=== PATIENT | female | born 1945 | race Caucasian/White ===

== ENCOUNTER 2020-02-03 04:38 | Emergency (ER) | payer MEDICARE, OTHER, SELFPAY ==
[2020-02-03] VITALS (7 sets, daily range): BP systolic 101–161; BP diastolic 66–94; PULSE 75–86; RESP 16–23; TEMP 36.8; O2SAT 95–98; BMI 20.7
--- NOTE | 2020-02-03 04:40 | XRR_ITS ---
PROCEDURE INFORMATION: Exam: XR Chest, 1 View Exam date and time: 02/03/2020 5:24 AM Age: 74 years old Clinical indication: Type not specified; Prior surgery; Surgery date: 6+ months; Surgery type: Stents placed 1.5 week ago and previously; Patient HX: C/O chest pain and epigastric pain with some reflux; Additional info: Cp TECHNIQUE: Imaging protocol: XR of the chest Views: 1 view. COMPARISON: No relevant prior studies available. FINDINGS: Lungs: Subtle airspace disease/opacity left costophrenic angle adjacent to the left heart border. Consider two-view chest. Lungs are otherwise well aerated. Pleural space: Unremarkable. No pleural effusion. No pneumothorax. Heart/Mediastinum: Unremarkable. No cardiomegaly. Bones/joints: Unremarkable. XR/XR chest 1V portable [id number] IMPRESSION: Subtle airspace disease/opacity left costophrenic angle adjacent to the left heart border. Consider two-view chest. Lungs are otherwise well aerated.
--- NOTE | 2020-02-03 04:40 | ECG_ITS ---
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 Measurements Intervals [place] Rate: 83 P: 43 NE: 165 QRS: -8 QRSD: 88 T: -82 QT: 391 QTc: 462 Interpretive Statements SINUS RHYTHM LOW QRS VOLTAGE IN PRECORDIAL LEADS MODERATE T-WAVE ABNORMALITY, CONSIDER LATERAL ISCHEMIA MODERATE T-WAVE ABNORMALITY, CONSIDER INFERIOR ISCHEMIA No previous ECG available for comparison Electronically Signed On 02-03-2020 20:50:16 CDT by Kenzie Brice M.D. [id number]
--- NOTE | 2020-02-03 05:01 | ED_ITS ---
Documented by User: Mike Mccurdy MD 02/03/20 18:05 HPI - Chest Pain General: Chief Complaint: Chest Pain Stated Complaint: cp/sob Time Seen by Provider: 02/03/20 04:39 Source: patient Mode of arrival: ambulatory Limitations: no limitations History of Present Illness: HPI narrative: 74-year-old female who has a history of heart attack earlier in January and had 1 stent placed in [place]. Patient having chest pain again week and a half ago at [place] and had 2 more stents placed. Patient is here and was plans on a trip with her son. She states that this morning she started having chest pain roughly 3 to 4 hours ago. States pain was epigastric in nature also feels like she has had some reflux. States the pain is currently an 8 out of 10 and she is having shortness of breath with difficulty inhaling. She denies any worsening or improving factors. She has had no cough or fever. complaint: chest pain Onset (ago): hour(s) Timing of current episode: constant Prior episodes: Yes Onset: during rest Pain location: substernal Pain radiation: none Severity: moderate Quality: tightness Relieving factors: nothing Exacerbating factors: nothing Associated symptoms: Deny abdominal pain, dyspnea, fever(s), nausea or vomiting Review of Systems Const: Denies: fever(s), chills, body aches or change in appetite Eyes: Denies: blurry vision or eye discomfort ENMT: Denies: throat pain or dental pain Card: Reports: chest pain Resp: Denies: dyspnea GI: Denies: abdominal pain, nausea, vomiting or diarrhea : Denies: dysuria Musc: Denies: neck pain or back pain Skin/Breast: Denies: rash Neuro: Denies: headache(s) Psych: Denies: depression Etienne/Lymph: Denies: easy bruising All/Imm: Denies: urticaria Physical Exam Const: COMMON NORMALS: no acute distress, patient oriented x3 and healthy appearing HENMT: COMMON NORMALS: normocephalic and atraumatic HEAD & SCALP: normocephalic and atraumatic Eye: COMMON NORMALS: Equal, round and reactive pupils present and EOMs intact bilaterally PUPIL: Yes Equal, round and reactive pupils present Neck/C-Spine: COMMON NORMALS: full ROM and supple Chest: COMMONS NORMALS: normal inspection of the chest and normal palpation of entire chest wall Resp: COMMON NORMALS: normal respiratory effort, No retractions, No use of accessory muscles and clear to auscultation bilaterally AUSCULTATION: clear to auscultation bilaterally Cardio: COMMON NORMALS: regular rate, regular rhythm and No murmurs present (Cardio) RATE: regular rate RHYTHM: regular rhythm GI: COMMON NORMALS: Normal to inspection, nondistended, normoactive bowel sounds present, Soft to palpation, non-tender and no masses PALPATION: Yes Soft to palpation Extremity: COMMON NORMALS: normal to inspection and full ROM Neuro: COMMON NORMALS: patient oriented x3, moves all extremities and no focal motor deficits Psych: COMMON NORMALS: mental status grossly normal, Normal thought process present and cooperative THOUGHT PROCESS: Normal thought process present Skin: COMMON NORMALS: no rashes or lesions noted and no wounds GENERAL SKIN EXAM: no rashes or lesions noted Course Vital Signs: Vital signs: Vital Signs Temperature 98.2 F 02/03/20 04:40 Pulse Rate 80 02/03/20 10:32 Respiratory Rate 23 H 02/03/20 10:32 Blood Pressure 112/67 02/03/20 10:32 Pulse Oximetry 96 02/03/20 10:32 MDM - Chest Pain Lab Data: Labs: Lab Results 02/03/20 02/03/20 02/03/20 Range/Units 05:00 05:00 05:00 WBC 8.9 (4.0-10.0) 10^3/ uL RBC 4.11 (4.1-5.3) 10^6/u L Hgb 11.4 L (11.5-15.3) g/dL Hct 36.3 L (37.0-47.0) % MCV 88.3 (81-99) fL MCH 27.7 L (28.0-34.0) pg MCHC 31.4 (30.0-36.0) g/dL RDW 12.9 (12.1-15.1) % Plt Count 249 (130-400) 10^3/c mm MPV 9.9 (7.4-10.4) fL Neut % (Auto) 73.0 % Lymph % (Auto) 14.5 % [place] % (Auto) 8.3 % Eos % (Auto) 3.0 % Baso % (Auto) 0.6 % Neut # (Auto) 6.5 (1.8-7.7) 10^3/u L Lymph # (Auto) 1.3 (0.8-4.8) 10^3/u L [place] # (Auto) 0.7 (0.2-0.9) 10^3/u L Eos # (Auto) 0.3 (0.0-0.8) 10^3/u L Baso # (Auto) 0.1 (0.0-0.1) 10^3/u L Nucleated RBC % (a uto) 0 % Nucleated RBCs # 0.0 /100WBC PT 12.50 (10.5-13.3) SECO NDS INR 0.91 (0.8-1.2) D-Dimer 0.81 H (0-0.59) ug/mIFE U Sodium 142 (136-145) mmol/L Potassium 3.7 (3.5-5.1) mmol/L Chloride 107 (98-107) mmol/L Carbon Dioxide 22 (22-29) mmol/L Anion Gap 16.7 (5-19) BUN 14 (8-23) mg/dL Creatinine 0.7 (0.5-0.9) mg/dL Glucose 172 H (65-115) mg/dL Calculated Osmolal ity 294 (285-295) mOsm/k g Calcium 9.9 (8.5-10.5) mg/dL Total Bilirubin 0.6 (0.15-1.2) mg/dL AST 13 (0-32) U/L ALT 13 (0-33) U/L Alkaline Phosphata se 71 (35-105) IU/L Troponin T Baselin e (0-10) ng/L Troponin T 120 Min [place] (0-10) ng/L Delta Troponin T (0-10) ABS# NT-Pro-B Natriuret Pep 2156 H (0-125) pg/mL Total Protein 6.4 L (6.6-8.7) g/dL Albumin 4.5 (3.5-5.2) g/dL Globulin 1.9 (1.3-4.6) g/dL 02/03/20 02/03/20 Range/Units 05:00 07:11 WBC (4.0-10.0) 10^3/ uL RBC (4.1-5.3) 10^6/u L Hgb (11.5-15.3) g/dL Hct (37.0-47.0) % MCV (81-99) fL MCH (28.0-34.0) pg MCHC (30.0-36.0) g/dL RDW (12.1-15.1) % Plt Count (130-400) 10^3/c mm MPV (7.4-10.4) fL Neut % (Auto) % Lymph % (Auto) % [place] % (Auto) % Eos % (Auto) % Baso % (Auto) % Neut # (Auto) (1.8-7.7) 10^3/u L Lymph # (Auto) (0.8-4.8) 10^3/u L [place] # (Auto) (0.2-0.9) 10^3/u L Eos # (Auto) (0.0-0.8) 10^3/u L Baso # (Auto) (0.0-0.1) 10^3/u L Nucleated RBC % (a uto) % Nucleated RBCs # /100WBC PT (10.5-13.3) SECO NDS INR (0.8-1.2) D-Dimer (0-0.59) ug/mIFE U Sodium (136-145) mmol/L Potassium (3.5-5.1) mmol/L Chloride (98-107) mmol/L Carbon Dioxide (22-29) mmol/L Anion Gap (5-19) BUN (8-23) mg/dL Creatinine (0.5-0.9) mg/dL Glucose (65-115) mg/dL Calculated Osmolal ity (285-295) mOsm/k g Calcium (8.5-10.5) mg/dL Total Bilirubin (0.15-1.2) mg/dL AST (0-32) U/L ALT (0-33) U/L Alkaline Phosphata se (35-105) IU/L Troponin T Baselin e 40 H (0-10) ng/L Troponin T 120 Min [place] 36.01 H (0-10) ng/L Delta Troponin T -3.99 L (0-10) ABS# NT-Pro-B Natriuret Pep (0-125) pg/mL Total Protein (6.6-8.7) g/dL Albumin (3.5-5.2) g/dL Globulin (1.3-4.6) g/dL Imaging Data^: CXR: Attestation: I personally reviewed and interpreted this imaging study as follows: My impression: no acute abnormality EKG Data^: EKG 1: Attestation: I personally reviewed and interpreted this EKG as follows: EKG interpretation date: 02/03/20 EKG interpretation time: 04:51 Interpretation: Normal sinus rhythm no ST elevation. T wave inversion in 2 3 and aVF along with V4 through V6 QRS 88 QTC 431 Discharge Plan Discharge Patient Disposition: Xfer Other Clinical Impression: Unstable angina Condition: Fair Discharge Date/Time: 02/03/20 11:55 Coding Level of Care Code ED School Lunch Manager for Chg Fwd Exam Comprehensive Documented by User: Dev Fraire DO 02/03/20 09:29 HPI - Chest Pain General: Chief Complaint: Chest Pain Stated Complaint: cp/sob Time Seen by Provider: 02/03/20 04:39 Course Vital Signs: Vital signs: Vital Signs Temperature 98.2 F 02/03/20 04:40 Pulse Rate 80 02/03/20 10:32 Respiratory Rate 23 H 02/03/20 10:32 Blood Pressure 112/67 02/03/20 10:32 Pulse Oximetry 96 02/03/20 10:32 MDM - Chest Pain Lab Data: Labs: Lab Results 02/03/20 02/03/20 02/03/20 Range/Units 05:00 05:00 05:00 WBC 8.9 (4.0-10.0) 10^3/ uL RBC 4.11 (4.1-5.3) 10^6/u L Hgb 11.4 L (11.5-15.3) g/dL Hct 36.3 L (37.0-47.0) % MCV 88.3 (81-99) fL MCH 27.7 L (28.0-34.0) pg MCHC 31.4 (30.0-36.0) g/dL RDW 12.9 (12.1-15.1) % Plt Count 249 (130-400) 10^3/c mm MPV 9.9 (7.4-10.4) fL Neut % (Auto) 73.0 % Lymph % (Auto) 14.5 % [place] % (Auto) 8.3 % Eos % (Auto) 3.0 % Baso % (Auto) 0.6 % Neut # (Auto) 6.5 (1.8-7.7) 10^3/u L Lymph # (Auto) 1.3 (0.8-4.8) 10^3/u L [place] # (Auto) 0.7 (0.2-0.9) 10^3/u L Eos # (Auto) 0.3 (0.0-0.8) 10^3/u L Baso # (Auto) 0.1 (0.0-0.1) 10^3/u L Nucleated RBC % (a uto) 0 % Nucleated RBCs # 0.0 /100WBC PT 12.50 (10.5-13.3) SECO NDS INR 0.91 (0.8-1.2) D-Dimer 0.81 H (0-0.59) ug/mIFE U Sodium 142 (136-145) mmol/L Potassium 3.7 (3.5-5.1) mmol/L Chloride 107 (98-107) mmol/L Carbon Dioxide 22 (22-29) mmol/L Anion Gap 16.7 (5-19) BUN 14 (8-23) mg/dL Creatinine 0.7 (0.5-0.9) mg/dL Glucose 172 H (65-115) mg/dL Calculated Osmolal ity 294 (285-295) mOsm/k g Calcium 9.9 (8.5-10.5) mg/dL Total Bilirubin 0.6 (0.15-1.2) mg/dL AST 13 (0-32) U/L ALT 13 (0-33) U/L Alkaline Phosphata se 71 (35-105) IU/L Troponin T Baselin e (0-10) ng/L Troponin T 120 Min [place] (0-10) ng/L Delta Troponin T (0-10) ABS# NT-Pro-B Natriuret Pep 2156 H (0-125) pg/mL Total Protein 6.4 L (6.6-8.7) g/dL Albumin 4.5 (3.5-5.2) g/dL Globulin 1.9 (1.3-4.6) g/dL 02/03/20 02/03/20 Range/Units 05:00 07:11 WBC (4.0-10.0) 10^3/ uL RBC (4.1-5.3) 10^6/u L Hgb (11.5-15.3) g/dL Hct (37.0-47.0) % MCV (81-99) fL MCH (28.0-34.0) pg MCHC (30.0-36.0) g/dL RDW (12.1-15.1) % Plt Count (130-400) 10^3/c mm MPV (7.4-10.4) fL Neut % (Auto) % Lymph % (Auto) % [place] % (Auto) % Eos % (Auto) % Baso % (Auto) % Neut # (Auto) (1.8-7.7) 10^3/u L Lymph # (Auto) (0.8-4.8) 10^3/u L [place] # (Auto) (0.2-0.9) 10^3/u L Eos # (Auto) (0.0-0.8) 10^3/u L Baso # (Auto) (0.0-0.1) 10^3/u L Nucleated RBC % (a uto) % Nucleated RBCs # /100WBC PT (10.5-13.3) SECO NDS INR (0.8-1.2) D-Dimer (0-0.59) ug/mIFE U Sodium (136-145) mmol/L Potassium (3.5-5.1) mmol/L Chloride (98-107) mmol/L Carbon Dioxide (22-29) mmol/L Anion Gap (5-19) BUN (8-23) mg/dL Creatinine (0.5-0.9) mg/dL Glucose (65-115) mg/dL Calculated Osmolal ity (285-295) mOsm/k g Calcium (8.5-10.5) mg/dL Total Bilirubin (0.15-1.2) mg/dL AST (0-32) U/L ALT (0-33) U/L Alkaline Phosphata se (35-105) IU/L Troponin T Baselin e 40 H (0-10) ng/L Troponin T 120 Min [place] 36.01 H (0-10) ng/L Delta Troponin T -3.99 L (0-10) ABS# NT-Pro-B Natriuret Pep (0-125) pg/mL Total Protein (6.6-8.7) g/dL Albumin (3.5-5.2) g/dL Globulin (1.3-4.6) g/dL Discharge Plan Discharge Patient Disposition: Xfer Other Clinical Impression: Unstable angina Condition: Fair Discharge Date/Time: 02/03/20 11:55 Coding Level of Care Code ED School Lunch Manager for Chg Fwd Exam Comprehensive
[2020-02-03 05:16] LABS: Basophils # 0.1 10^3/uL (0.0-0.1); Basophils % 0.6 %; Eosinophils # 0.3 10^3/uL (0.0-0.8); Hematocrit 36.3 % (37.0-47.0); Hemoglobin 11.4 g/dL (11.5-15.3); Lymphocytes # 1.3 10^3/uL (0.8-4.8); Lymphocytes % 14.5 %; Mean Corpuscular HGB Conc 31.4 g/dL (30.0-36.0); Mean Corpuscular Hemoglobin 27.7 pg (28.0-34.0); Mean Corpuscular Volume 88.3 fL (81-99); Mean Platelet Volume 9.9 fL (7.4-10.4); Monocytes # 0.7 10^3/uL (0.2-0.9); Monocytes % 8.3 %; Neutrophils # 6.5 10^3/uL (1.8-7.7); Nucleated Red Blood Cells % 0 %; Platelet Count 249 10^3/cmm (130-400); Red Blood Count 4.11 10^6/uL (4.1-5.3); Red Cell Distribution Width 12.9 % (12.1-15.1); White Blood Count 8.9 10^3/uL (4.0-10.0)
[2020-02-03] MEDS: aspirin 81 mg Chew Tablet 324 MG PO (05:25)
[2020-02-03] MEDS: nitroglycerin 0.4 mg sublingual Tablet SUBLINGUAL (05:27)
[2020-02-03 05:39] LABS: Troponin(5th) Baseline 40 ng/L (0-10)
--- NOTE | 2020-02-03 05:42 | PC.NURSE ---
VISUAL CHANGES AFTER TAKING ONE NGT. INFORMED DR DELATORRE. GAVE VERBAL ORDERS TO STOP NTG. BECAME DIAPHORTIEC, NAUSEATED WITH COLD SWEATS AND LOUD BUMPING
[2020-02-03 05:48] LABS: Alanine Aminotransferase 13 U/L (0-33); Albumin Level 4.5 g/dL (3.5-5.2); Alkaline Phosphatase 71 IU/L (35-105); Anion Gap 16.7 (5-19); Aspartate Amino Transferase 13 U/L (0-32); Blood Urea Nitrogen 14 mg/dL (8-23); Calcium 9.9 mg/dL (8.5-10.5); Carbon Dioxide 22 mmol/L (22-29); Chloride 107 mmol/L (98-107); Globulin 1.9 g/dL (1.3-4.6); Glucose 172 mg/dL (65-115); NT Pro B Type Natriuretic Pept 2156 pg/mL (0-125); Osmolality Calculated 294 mOsm/kg (285-295); Potassium 3.7 mmol/L (3.5-5.1); Sodium 142 mmol/L (136-145); Total Bilirubin 0.6 mg/dL (0.15-1.2); Total Protein 6.4 g/dL (6.6-8.7)
[2020-02-03 05:56] LABS: INR 0.91 (0.8-1.2)
--- NOTE | 2020-02-03 06:40 | ECG_ITS ---
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 Measurements Intervals [place] Rate: 76 P: 45 [place]: 165 QRS: -7 QRSD: 81 T: 240 QT: 445 QTc: 501 Interpretive Statements SINUS RHYTHM POSSIBLE LEFT ATRIAL ENLARGEMENT INFERIOR MYOCARDIAL INFARCTION , OF INDETERMINATE AGE MODERATE T-WAVE ABNORMALITY, CONSIDER INFEROLATERAL ISCHEMIA Compared to ECG 02/03/2020 04:51:02 Myocardial infarct finding now present T-wave abnormality still present Possible ischemia still present Electronically Signed On 02-03-2020 21:03:11 CDT by Kenzie Brice M.D. [id number] maria d
[2020-02-03 06:50] LABS: D Dimer 0.81 ug/mIFEU (0-0.59)
[2020-02-03 07:38] LABS: Troponin 5 2HR 36.01 ng/L (0-10)
[2020-02-03 07:43] LABS: Troponin 5 2HR Delta -3.99 ABS# (0-10)
--- NOTE | 2020-02-03 10:40 | ECG_ITS ---
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 Measurements Intervals [place] Rate: 86 P: 67 [place]: 161 QRS: 13 QRSD: 91 T: -48 QT: 424 QTc: 508 Interpretive Statements SINUS RHYTHM MODERATE T-WAVE ABNORMALITY, CONSIDER LATERAL ISCHEMIA [-0.1+ mV T WAVE IN I/aVL/V5/V6] MODERATE T-WAVE ABNORMALITY, CONSIDER INFERIOR ISCHEMIA [-0.1+ mV T WAVE IN II/aVF] Compared to ECG 02/03/2020 07:26:55 Myocardial infarct finding no longer present T-wave abnormality still present Possible ischemia still present Electronically Signed On 02-03-2020 20:57:39 CDT by Kenzie Brice M.D. [id number]
--- NOTE | 2020-02-03 11:08 | PC.NURSE ---
EKG done at 1108 and shown to ER doctor
== END 2020-02-03 11:55 | disposition other institution (70) ==
PROVIDERS: Emergency Medicine; Emergency Provider Family Medicine
DX: I20.0 Unstable angina (principal)
CPT/HCPCS: 12345; 36415; 71045; 80053; 83880; 84484; 85025; 85378; 85610; 93005; 99283; 99285